=== PATIENT | female | born 1970 | race Caucasian/White ===

== ENCOUNTER → 2017-07-15 11:58 | Outpatient (CLI) | payer OTHER, SELFPAY ==
[2017-07-20 12:11] LABS: HPV Reflexed? NOT INDICATED
== END ==
PROVIDERS: Family Provider Family Medicine; PCP Family Medicine; Visit Provider Nurse Practitioner Adult Health
DX: Z01.419 Encounter for gynecological examination (general) (routine) without abnormal findings (principal)
CPT/HCPCS: 88175; G0145

== ENCOUNTER 2017-07-21 15:30 | Outpatient (RCR) | payer OTHER, SELFPAY ==
--- NOTE | 2017-07-15 11:54 | HP.PTEVAL ---
Patient's Visit Information JOE PITTMAN is a 47 year old F referred to Physical Therapy by Jose De Jesus Rosenbaum MD with a diagnosis of Hamstring Strain. Date of Evaluation: 07/15/17 Physical Therapist: Nerissa Lockhart - Visit Plan Frequency: 2x /Week Duration: 4 Weeks Plan: Core s/s - Subjective Subjective: Last wed she was at the [facility]- has been increasing weights- she increased weights on the leg press- she felt okay then 2 days later she was running and felt a pop and then she was done. Went to see MD- partial hamstring tear by Dr. Rosas- then went to [facility] and did the elliptical and acr marine mammal trainer for 20 each with no pain. Wednesday walked 3.71 miles and it hurt. Yesterday she ran 5 miles yesterday and didn't hurt to bad. This morning she ran 5 miles in an hour which is slow for her. She has also lifted this week. Worst: 02/28 Agg: movement Today: 4/10 Eases: resting. Had steroid injection in her buttocks when she saw . No x-rays or MRI. 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 PMHx: shingles Meds: prozac - Objective Posture: good throughout. Gait: no deviation. Observation: increased bruising on the posterior knee crease. ROM: WNL in all planes. Strength: Ankle: 5/5, Knee: 4/5, Hip: 4-/5 throughout. Flex: HS: moderate, Gastroc: mod - Goals Goal 1:: Patient will be I with HEP and progression Goal Time Frame: 4-6 Weeks Goal 2:: Patient will run 5 miles with 0/10 pain Goal Time Frame: 4-6 Weeks Goal 3:: Patient will demo 5/5 hip strength Goal Time Frame: 4-6 Weeks - Rehabilitation Potential Physical Therapy Diagnosis: Patient presents with hypomobility s/p hamstring strain she has decreased strength, flex and muscular endurance leading to increased pain Rehabilitation Potential: Good - Anticipated Interventions Therapeutic Exercise to Include: Strength training, Endurance training, Balance training, Coordination, Agility training, Body mechanics, Postural training, Flexibilty training, Gait and locomotor training, Dynamic Lumbar Stabilization For the Purpose of:: To improve muscle performance and motor function Manual Therapy Techniques to Include: Functional dry needling For the Purpose of:: To improve nutrient delivery to tissue, To increase oxygenation perfusion Thank you for the opportunity to evaluate your patient. For Medicare and Medicare HMO plans, please review the plan of care and approve it. It will need to be FAXED BACK to us at [phone] for Medicare purposes. Please let me know if there are questions or concerns regarding this plan of care. Physician Signature: Date:
--- NOTE | 2017-09-08 08:36 | HP.PT.NRP ---
HP - Discharge Summary (1) - Patient Information JOE PITTMAN was seen in my office for initial evaluation on 07/15/17. The following Plan of Care was established for this patient: Initial Frequency: 2x /Week Initial Duration: 4 Weeks - Anticipated Interventions Therapeutic Exercise to Include: Strength training, Endurance training, Balance training, Coordination, Agility training, Body mechanics, Postural training, Flexibilty training, Gait and locomotor training, Dynamic Lumbar Stabilization For the Purpose of:: To improve muscle performance and motor function Manual Therapy Techniques to Include: Functional dry needling For the Purpose of:: To improve nutrient delivery to tissue, To increase oxygenation perfusion This patient was last seen in our office . Pertinent comments regarding their Physical therapy will appear below: Patient is back to running and does not require physical therapy at this time. Appropriate for d.c. At this point I will be discontinuing this patient from physical therapy. I would be happy to see this patient again in the future if found appropriate by the physician. Thank you! Nerissa Lockhart
== END 2017-08-09 19:00 | disposition home or self-care (01) ==
LOC: PT 15:30
PROVIDERS: Family Provider Family Medicine; PCP Family Medicine; Visit Provider Family Medicine
DX: S76.309D Unspecified injury of muscle, fascia and tendon of the posterior muscle group at thigh level, unspecified thigh, subsequent encounter (principal)
CPT/HCPCS: 97110; 97161

== ENCOUNTER → 2018-01-13 08:01 | Outpatient (CLI) | payer OTHER, SELFPAY ==
--- NOTE | 2018-01-13 08:03 | BI_ITS ---
MAMMOGRAPHY - BILATERAL SCREENING REASON FOR EXAM: Female, 47 years old. Routine annual screening examination. PERTINENT HISTORY: Non-contributory. TECHNIQUE: Digital bilateral breast melita (3D mammographic acquisition) in the CC and MLO projections. 2-D mediolateral oblique (MLO) and craniocaudad (CC) views of both breasts were obtained. CAD: Full Field Digital Mammography with Computer Added Detection was performed. COMPARISON: Comparison is made with prior study via January 12, 2017 and June 25, 2015. FINDINGS: Breast Composition: The breasts are extremely dense, which lowers the sensitivity of mammography. There are no dominant masses or suspicious calcifications. No other significant abnormalities are identified. There has been no significant change since the prior study. BI/SCREENING MAMM (CAD), BILAT IMPRESSION: Stable bilateral screening mammogram. Yearly follow-up mammogram recommended. (A) ASSESSMENT CATEGORY: BIRADS Category 1: Negative. A letter regarding these results will be sent to the patient by the facility within 30 days. Approximately 10% of breast cancers are not detected by mammography. A normal mammogram should not delay biopsy of a clinically suspicious abnormality. [id number] Electronically Signed: Vickey Akins MD at 8:35 EDT Tel [phone], Service support ,
== END ==
PROVIDERS: Family Provider Family Medicine; PCP Family Medicine; Referring Provider Nurse Practitioner Adult Health; Visit Provider Nurse Practitioner Adult Health
DX: Z12.31 Encounter for screening mammogram for malignant neoplasm of breast (principal)
CPT/HCPCS: 77063; 77067

== ENCOUNTER → 2018-04-19 10:21 | Outpatient (CLI) | payer OTHER, SELFPAY ==
--- NOTE | 2018-04-19 10:30 | RAD_ITS ---
STUDY: X-RAY - RIGHT HAND REASON FOR EXAM: Female, 47 years old. Pain following a recent fall. TECHNIQUE: 3 view(s) of the hand. COMPARISON: None. FINDINGS: Normal radiocarpal articulation. Normal distal radioulnar joint. Normal visualized carpal bones. Normal carpal articulations Normal carpometacarpal articulation of the thumb. Normal second through fifth carpometacarpal joints. Normal metacarpi. Normal metacarpophalangeal joint of the thumb. Normal interphalangeal joint of the thumb. Normal proximal and distal phalanges of the thumb. Normal metacarpophalangeal joints of the second through fifth fingers. Normal proximal and distal interphalangeal joints of the second through fifth fingers. Normal phalanges of the second through fifth fingers. The soft tissue structures are unremarkable. RAD/Hand Min 3 Views IMPRESSION: Normal x-ray examination of the hand. Electronically Signed: Vickey Akins MD at 15:02 EST , Service support ,
--- NOTE | 2018-04-19 10:31 | RAD_ITS ---
STUDY: X-RAY - RIGHT WRIST REASON FOR EXAM: Female, 47 years old. Pain following a recent fall. TECHNIQUE: 3 view(s) of the wrist were obtained. COMPARISON: None. FINDINGS: Normal visualized distal radius and ulna. Normal radiocarpal articulation. Normal distal radioulnar articulation. Normal carpal bones. Normal carpal articulations. Normal carpometacarpal articulation of the thumb. Normal second through fifth carpometacarpal articulations. Normal visualized metacarpal bones. Soft tissue swelling. RAD/Wrist min 3 Views IMPRESSION: Soft tissue swelling. Electronically Signed: Vickey Akins MD at 15:02 EST , Service support ,
== END ==
PROVIDERS: Family Provider Family Medicine; PCP Family Medicine; Referring Provider Family Medicine; Visit Provider Family Medicine
DX: S60.221A Contusion of right hand, initial encounter (principal)
CPT/HCPCS: 73110; 73130

== ENCOUNTER → 2018-07-19 13:34 | Outpatient (CLI) | payer OTHER, SELFPAY ==
[2018-07-22 13:09] LABS: HPV Reflexed? NOT INDICATED
== END ==
PROVIDERS: PCP Family Medicine; Visit Provider Nurse Practitioner Adult Health
DX: Z01.419 Encounter for gynecological examination (general) (routine) without abnormal findings (principal)
CPT/HCPCS: 88175; G0145

== ENCOUNTER → 2019-01-17 10:35 | Outpatient (CLI) | payer OTHER, SELFPAY ==
--- NOTE | 2019-01-17 10:38 | BI_ITS ---
MAMMOGRAPHY - BILATERAL SCREENING REASON FOR EXAM: Female, 48 years old. Routine annual screening examination. PERTINENT HISTORY: Non-contributory. TECHNIQUE: Digital bilateral breast niall (3D mammographic acquisition) in the CC and MLO projections. 2-D mediolateral oblique (MLO) and craniocaudad (CC) views of both breasts were obtained. CAD: Full Field Digital Mammography with Computer Added Detection was performed. COMPARISON: Comparison is made with prior study January 13, 2018 and January 12, 2017. FINDINGS: Breast Composition: The breasts are extremely dense, which lowers the sensitivity of mammography. There are no dominant masses or suspicious calcifications. No other significant abnormalities are identified. There has been no significant change since the prior study. BI/SCREEN MAMM (CAD) W/NIALL BILAT IMPRESSION: Stable bilateral screening mammogram. Yearly follow-up mammogram recommended. (A) ASSESSMENT CATEGORY: BIRADS Category 1: Negative. A letter regarding these results will be sent to the patient by the facility within 30 days. Approximately 10% of breast cancers are not detected by mammography. A normal mammogram should not delay biopsy of a clinically suspicious abnormality. [id number] Electronically Signed: Vickey Akins, at 14:10 EDT , Service support ,
--- NOTE | 2019-01-17 10:41 | BD_ITS ---
STUDY: DUAL ENERGY X-RAY ABSORPTIOMETRY / DXA REASON FOR EXAM: Female, 48 years old. The patient is postmenopausal. Loss of height. TECHNIQUE: Bone Mineral Density (BMD) measurements of lumbar spine and bilateral hips were obtained. COMPARISON: Comparison is made with prior examination dated December 31, 2010. FINDINGS: Lumbar Spine (L1-L4): g/cm2 (0.935) / T-score (-2.0) / Z-score (-1.7) Findings are suggestive of osteopenia with a moderate fracture risk. Left Femur Total: g/cm2 (0.763) / T-score (-1.9) / Z-score (-1.5) Left Femoral Neck: g/cm2 (0.759) / T-score (-2.0) / Z-score (-1.2) Right Femur Total: g/cm2 (0.768) / T-score (-1.9) / Z-score (-1.5) Right Femoral Neck: g/cm2 (0.768) / T-score (-1.9) / Z-score (-1.2) The T-Scores on the most recent prior examination were: Lumbar Spine (L1-L4): There has been worsening of bone density since the previous examination. Left Femur Total: which represents a worsening of 1.8%. Right Femur Total: which represents an improvement of 0.1%. BD/Dexa Bone Density Study IMPRESSION: The patient is considered osteopenic as outlined below according to World [place] Organization (WHO) criteria with a moderate fracture risk. There has been worsening of bone density since the previous examination. Reference Information: The T-score is the number of standard deviations above or below the standard which is normal for young adults at their peak bone mineral density. The World Health Organization (WHO) interprets the T-scores as follows: Above -1 Normal bone density Between -1 and -2.5 Osteopenia Equal to / or below -2.5 Osteoporosis As a practical clinical guideline, osteopenia may be graded as follows: Mild -1 through -1.5 Moderate -1.6 through -2.0 Severe -2.1 through -2.4 The Z-score is the number of standard deviations above or below age-matched controls. A Z-score of less than -1.5 would be considered abnormal. References: 1. NIH Osteoporosis and Related Bone Diseases http://www.osteo.org 2. International Society for Clinical Densitometry http://www.iscd.org 3. National Osteoporosis Foundation http://www.nof.org Electronically Signed: Vickey Akins, at 11:10 EDT , Service support ,
== END ==
PROVIDERS: Family Provider Family Medicine; PCP Family Medicine; Referring Provider Family Medicine; Visit Provider Family Medicine
DX: Z12.31 Encounter for screening mammogram for malignant neoplasm of breast (principal); M85.80 Other specified disorders of bone density and structure, unspecified site
CPT/HCPCS: 77063; 77067; 77080

== ENCOUNTER → 2019-03-16 16:33 | Outpatient (CLI) | payer OTHER, SELFPAY ==
[2019-03-16 17:28] LABS: Absolute Lymphocyte Count 2.06 X10^3/uL (0.83-4.51); Absolute Neutrophil Count 2.9 X10^3/uL (2.0-7.7); Basophil# 0.05 X10^3/uL; Basophil% 0.9 % (0-1); Eosinophil# 0.15 X10^3/uL; Eosinophils% 2.6 % (0-5); Hematocrit 37.7 % (37-47); Hemoglobin 12.1 g/dL (12.0-15.0); Lymphocyte # 2.06 X10^3/ul (4.0); Lymphocyte % 36.3 % (19-41); Mean Corp Hgb Conc 32.1 g/dL (32-36); Mean Corpuscular Hgb 31.6 pg (27.0-32.0); Mean Corpuscular Volume 98.4 fL (81-99); Mean Platelet Vol. 11.4 fl (6.2-12.0); Monocyte# 0.53 X10^3/uL; Monocyte% 9.3 % (0-10); NRBC Flagged by Analyzer 0 % (0-5); Neutrophil # 2.86 X10^3/uL (2.7-7.7); Neutrophil % 50.5 % (47-70); Platelet Count 261 K/mm3 (150-450); RBC Distribution Width CV 12.6 % (11.6-14.6); RBC Distribution Width SD 45.2 fl (35.1-43.9); Red Blood Count 3.83 M/mm3 (4.2-5.4); White Blood Count 5.7 K/mm3 (4.4-11.0)
[2019-03-16 17:55] LABS: Vitamin B12 602 pg/mL (211-911); Vitamin D,25 Hydroxy 52.3 ng/mL (29.95-100.01)
[2019-03-16 17:59] LABS: AST(SGOT) 24 U/L (15-37); Alanine Aminotransfer ALT/SGPT 24 U/L (13-56); Albumin, Serum 3.5 g/dL (3.2-5.0); Alkaline Phosphatase 53 U/L (45-117); Anion Gap 4 (5-15); BUN 18 mg/dL (7-18); BUN/Creat Ratio 25.6 RATIO (10-20); Calcium,Total 8.8 mg/dL (8.5-10.1); Chloride 104 mmol/L (98-107); EST Glomerular Filtration Rate 94 mL/min (>60); Est Glom Filt Rate - Afr Amer 113 mL/min (>60); Ferritin 21 ng/mL (8-252); Free T3 2.3 pg/mL (2.18-3.98); Globulin 3.5 g/dL (2.2-4.2); Glucose 75 mg/dL (74-106); Iron 105 ug/dL (50-170); Potassium 3.9 mmol/L (3.5-5.1); Sodium Level 138 mmol/L (136-145); T4 Free Direct 0.78 ng/dL (0.76-1.46); Thyroid Stim Hormone (TSH) 5.56 uIU/mL (0.358-3.74)
[2019-03-16 18:27] LABS: Erythrocyte Sedimentation Rate 4 mm/hr (0-20)
== END ==
PROVIDERS: Family Provider Family Medicine; PCP Family Medicine; Visit Provider Family Medicine
DX: M85.80 Other specified disorders of bone density and structure, unspecified site (principal); R53.83 Other fatigue
CPT/HCPCS: 80053; 82306; 82533; 82607; 82728; 83540; 84439; 84443; 84481; 85025; 85652

== ENCOUNTER → 2019-04-05 13:57 | Outpatient (CLI) | payer OTHER, SELFPAY ==
--- NOTE | 2019-04-05 14:06 | CT_ITS ---
STUDY: CT BRAIN WITH AND WITHOUT CONTRAST REASON FOR EXAM: Female, 48 years old. FREQUENT HEADACHE RADIATION DOSAGE (If Supplied By Facility): CTDIvol = ( 44.99 ) mGy, DLP = ( 1547.23 ) mGycm TECHNIQUE: Transaxial CT imaging of the brain was performed pre and post contrast administration. The examination was performed with intravenous administration of . Individualized dose optimization techniques were used for this CT. COMPARISON: February 20, 2011 CT brain FINDINGS: Normal soft tissue structures. Normal calvarium. Normal size ventricles and extra-axial spaces for the patient''s age. Normal white matter tracts of the cerebral hemispheres. Normal basal ganglia and thalami. Normal brainstem. Normal cerebellum. There is no intracranial hemorrhage. There are no findings of an acute ischemic infarction. Normal visualized paranasal sinuses. CT/Brain/Head W/WO Contrast IMPRESSION: Normal unenhanced and enhanced CT scan of the brain. Electronically Signed: Han Mendoza MD at 18:54 EST , Service support ,
== END ==
PROVIDERS: Family Provider Family Medicine; PCP Family Medicine; Referring Provider Family Medicine; Visit Provider Family Medicine
DX: R51 Headache (principal)
CPT/HCPCS: 70470; Q9967

== ENCOUNTER → 2019-04-10 06:32 | Outpatient (CLI) | payer OTHER, SELFPAY ==
[2019-04-10 09:37] LABS: T4 Free Direct 0.99 ng/dL (0.76-1.46); Thyroid Stim Hormone (TSH) 1.76 uIU/mL (0.358-3.74)
== END ==
PROVIDERS: PCP Family Medicine; Referring Provider Family Medicine; Visit Provider Family Medicine
DX: E03.9 Hypothyroidism, unspecified (principal)
CPT/HCPCS: 36415; 84439; 84443

== ENCOUNTER → 2019-08-21 16:10 | Outpatient (CLI) | payer OTHER, SELFPAY ==
[2019-08-21 18:07] LABS: Thyroid Stim Hormone (TSH) 1.61 uIU/mL (0.358-3.74)
[2019-08-23 17:47] LABS: HPV Reflexed? NOT INDICATED
== END ==
PROVIDERS: PCP Family Medicine; Referring Provider Family Medicine; Visit Provider Family Medicine
DX: Z01.419 Encounter for gynecological examination (general) (routine) without abnormal findings (principal); E03.9 Hypothyroidism, unspecified
CPT/HCPCS: 36415; 84439; 84443; 88175; G0145

== ENCOUNTER 2019-12-06 09:35 | Outpatient (RCR) | payer OTHER, SELFPAY | END 2019-12-20 23:59 | LOC: EMPH 09:35 | PROVIDERS: PCP Family Medicine; Referring Provider Family Medicine Geriatric Medicine; Visit Provider Family Medicine Geriatric Medicine | DX: Z11.59 Encounter for screening for other viral diseases (principal) | CPT/HCPCS: 87635; U0003 ==

== ENCOUNTER → 2020-01-08 11:56 | Outpatient (CLI) | payer OTHER, SELFPAY ==
[2020-01-08 13:37] LABS: Thyroid Stim Hormone (TSH) 1.08 uIU/mL (0.358-3.74)
== END ==
PROVIDERS: PCP Family Medicine; Visit Provider Family Medicine
DX: E03.9 Hypothyroidism, unspecified (principal)
CPT/HCPCS: 36415; 84439; 84443

== ENCOUNTER 2020-01-18 13:03 | Outpatient (RCR) | payer OTHER, SELFPAY | END 2020-01-20 23:59 | LOC: EMPH 13:03 | PROVIDERS: PCP Family Medicine; Referring Provider Family Medicine Geriatric Medicine; Visit Provider Family Medicine Geriatric Medicine | DX: Z03.818 Encounter for observation for suspected exposure to other biological agents ruled out (principal) | CPT/HCPCS: 87426 ==

== ENCOUNTER → 2020-01-23 10:17 | Outpatient (CLI) | payer OTHER, SELFPAY ==
--- NOTE | 2020-01-23 10:19 | BI_ITS ---
MAMMOGRAPHY - BILATERAL SCREENING REASON FOR EXAM: Female, 49 years old. Routine annual screening examination. PERTINENT HISTORY: Non-contributory. TECHNIQUE: Digital bilateral breast niall (3D mammographic acquisition) in the CC and MLO projections. 2-D mediolateral oblique (MLO) and craniocaudad (CC) views of both breasts were obtained. CAD: Full Field Digital Mammography with Computer Added Detection was performed. COMPARISON: Comparison is made with prior examination dated 01/17/2019 and 01/13/2018. FINDINGS: Breast Composition: The breasts are extremely dense, which lowers the sensitivity of mammography. There are no dominant masses or suspicious calcifications. No other significant abnormalities are identified. There has been no significant change since the prior study. BI/SCREEN MAMM (CAD) W/NIALL BILAT IMPRESSION: Stable bilateral screening mammogram. Yearly follow-up mammogram recommended. (A) ASSESSMENT CATEGORY: BIRADS Category 1: Negative. A letter regarding these results will be sent to the patient by the facility within 30 days. Approximately 10% of breast cancers are not detected by mammography. A normal mammogram should not delay biopsy of a clinically suspicious abnormality. [id number] Electronically Signed: Vickey Akins, at 11:19 EST , Service support ,
== END ==
PROVIDERS: PCP Family Medicine; Referring Provider Nurse Practitioner Adult Health; Visit Provider Nurse Practitioner Adult Health
DX: Z12.31 Encounter for screening mammogram for malignant neoplasm of breast (principal)
CPT/HCPCS: 77063; 77067

== ENCOUNTER 2020-02-14 08:12 | Outpatient (RCR) | payer OTHER, SELFPAY ==
[2020-02-01 10:26] LABS: Probe Check PASS; Specimen Processing Control PASS
== END 2020-02-19 23:59 ==
LOC: EMPH 08:12
PROVIDERS: PCP Family Medicine; Referring Provider Family Medicine Geriatric Medicine; Visit Provider Family Medicine Geriatric Medicine
DX: Z03.818 Encounter for observation for suspected exposure to other biological agents ruled out (principal)
CPT/HCPCS: 87426; 87635; U0002

== ENCOUNTER 2020-03-20 14:14 | Outpatient (RCR) | payer OTHER, SELFPAY | END 2020-03-21 23:59 | LOC: EMPH 14:14 | PROVIDERS: PCP Family Medicine; Referring Provider Family Medicine Geriatric Medicine; Visit Provider Family Medicine Geriatric Medicine | DX: Z03.818 Encounter for observation for suspected exposure to other biological agents ruled out (principal) | CPT/HCPCS: 87426 ==

== ENCOUNTER 2020-04-19 08:17 | Outpatient (RCR) | payer OTHER, SELFPAY | END 2020-04-21 23:59 | LOC: EMPH 08:17 | PROVIDERS: PCP Family Medicine; Referring Provider Family Medicine Geriatric Medicine; Visit Provider Family Medicine Geriatric Medicine | DX: Z03.818 Encounter for observation for suspected exposure to other biological agents ruled out (principal) | CPT/HCPCS: 87426 ==

== ENCOUNTER 2020-05-14 12:40 | Outpatient (RCR) | payer OTHER, SELFPAY | END 2020-05-19 23:59 | LOC: EMPH 12:40 | PROVIDERS: PCP Family Medicine; Referring Provider Family Medicine Geriatric Medicine; Visit Provider Family Medicine Geriatric Medicine | DX: Z03.818 Encounter for observation for suspected exposure to other biological agents ruled out (principal) | CPT/HCPCS: 87426 ==

== ENCOUNTER 2020-06-12 09:45 | Outpatient (RCR) | payer OTHER, SELFPAY | END 2020-06-19 23:59 | LOC: EMPH 09:45 | PROVIDERS: PCP Family Medicine; Referring Provider Family Medicine Geriatric Medicine; Visit Provider Family Medicine Geriatric Medicine | DX: Z03.818 Encounter for observation for suspected exposure to other biological agents ruled out (principal) | CPT/HCPCS: 87426 ==

== ENCOUNTER → 2020-06-13 11:12 | Outpatient (CLI) | payer OTHER, SELFPAY ==
[2020-06-13 13:30] LABS: T4 Free Direct 0.77 ng/dL (0.76-1.46); Thyroid Stim Hormone (TSH) 2.11 uIU/mL (0.358-3.74)
[2020-06-13 16:24] LABS: Vitamin D,25 Hydroxy 52.9 ng/mL
== END ==
PROVIDERS: PCP Family Medicine; Referring Provider Family Medicine; Visit Provider Family Medicine
DX: E03.9 Hypothyroidism, unspecified (principal); F32.9 Major depressive disorder, single episode, unspecified
CPT/HCPCS: 36415; 82306; 84439; 84443

== ENCOUNTER 2020-07-19 10:02 | Outpatient (RCR) | payer OTHER, SELFPAY | END 2020-07-19 23:59 | LOC: EMPH 10:02 | PROVIDERS: PCP Family Medicine; Referring Provider Family Medicine Geriatric Medicine; Visit Provider Family Medicine Geriatric Medicine | DX: Z03.818 Encounter for observation for suspected exposure to other biological agents ruled out (principal) | CPT/HCPCS: 87426 ==

== ENCOUNTER → 2020-07-23 07:57 | Outpatient (CLI) | payer OTHER, SELFPAY ==
[2020-07-23 10:53] LABS: T4 Free Direct 0.94 ng/dL (0.76-1.46); Thyroid Stim Hormone (TSH) 1.63 uIU/mL (0.358-3.74)
== END ==
PROVIDERS: PCP Family Medicine; Referring Provider Family Medicine; Visit Provider Family Medicine
DX: E03.9 Hypothyroidism, unspecified (principal)
CPT/HCPCS: 36415; 84439; 84443

== ENCOUNTER 2020-08-13 13:41 | Outpatient (RCR) | payer OTHER, SELFPAY | END 2020-08-19 23:59 | LOC: EMPH 13:41 | PROVIDERS: PCP Family Medicine; Referring Provider Family Medicine Geriatric Medicine; Visit Provider Family Medicine Geriatric Medicine | DX: Z03.818 Encounter for observation for suspected exposure to other biological agents ruled out (principal) | CPT/HCPCS: 87426 ==

== ENCOUNTER 2020-09-11 13:07 | Outpatient (RCR) | payer OTHER, SELFPAY | END 2020-09-18 23:59 | LOC: EMPH 13:07 | PROVIDERS: PCP Family Medicine; Referring Provider Family Medicine Geriatric Medicine; Visit Provider Family Medicine Geriatric Medicine | DX: Z03.818 Encounter for observation for suspected exposure to other biological agents ruled out (principal) | CPT/HCPCS: 87426 ==

== ENCOUNTER → 2020-09-17 10:20 | Outpatient (CLI) | payer OTHER, SELFPAY ==
[2020-09-21 07:37] LABS: HPV Reflexed? NOT INDICATED
== END ==
PROVIDERS: PCP Family Medicine; Visit Provider Registered Nurse
DX: Z01.419 Encounter for gynecological examination (general) (routine) without abnormal findings (principal)
CPT/HCPCS: 88175; G0145

== ENCOUNTER 2020-09-25 13:27 | Outpatient (RCR) | payer OTHER, SELFPAY | END 2020-10-19 23:59 | LOC: EMPH 13:27 | PROVIDERS: PCP Family Medicine; Referring Provider Family Medicine Geriatric Medicine; Visit Provider Family Medicine Geriatric Medicine | DX: Z03.818 Encounter for observation for suspected exposure to other biological agents ruled out (principal) | CPT/HCPCS: 87426 ==

== ENCOUNTER 2020-11-19 12:18 | Outpatient (RCR) | payer OTHER, SELFPAY | END 2020-11-19 23:59 | LOC: EMPH 12:18 | PROVIDERS: PCP Family Medicine; Referring Provider Family Medicine Geriatric Medicine; Visit Provider Family Medicine Geriatric Medicine | DX: Z03.818 Encounter for observation for suspected exposure to other biological agents ruled out (principal) | CPT/HCPCS: 87426 ==

== ENCOUNTER 2020-12-02 13:42 | Outpatient (RCR) | payer OTHER, SELFPAY | END 2020-12-19 23:59 | LOC: EMPH 13:42 | PROVIDERS: PCP Family Medicine; Referring Provider Family Medicine Geriatric Medicine; Visit Provider Family Medicine Geriatric Medicine | DX: Z03.818 Encounter for observation for suspected exposure to other biological agents ruled out (principal) | CPT/HCPCS: 87426 ==

== ENCOUNTER → 2021-01-23 10:48 | Outpatient (CLI) | payer OTHER, SELFPAY ==
--- NOTE | 2021-01-23 10:50 | BI_ITS ---
MAMMOGRAPHY - BILATERAL SCREENING REASON FOR EXAM: Female, 50 years old. Routine annual screening examination. PERTINENT HISTORY: Non-contributory. TECHNIQUE: Digital bilateral breast niall (3D mammographic acquisition) in the CC and MLO projections. 2-D mediolateral oblique (MLO) and craniocaudad (CC) views of both breasts were obtained. CAD: Full Field Digital Mammography with Computer Added Detection was performed. COMPARISON: Comparison is made with prior study dated 01/23/2020 and 01/17/2019. FINDINGS: Breast Composition: The breasts are extremely dense, which lowers the sensitivity of mammography. There are no dominant masses or suspicious calcifications. No other significant abnormalities are identified. There has been no significant change since the prior study. BI/SCRN MAMM (CAD)W/NIALL BILAT IMPRESSION: Stable bilateral screening mammogram. Yearly follow-up mammogram recommended. (A) ASSESSMENT CATEGORY: BIRADS Category 1: Negative. A letter regarding these results will be sent to the patient by the facility within 30 days. Approximately 10% of breast cancers are not detected by mammography. A normal mammogram should not delay biopsy of a clinically suspicious abnormality. [id number] Electronically Signed: Vickey Akins MD at 13:17 EDT , Service support ,
--- NOTE | 2021-01-23 11:07 | BD_ITS ---
STUDY: DUAL ENERGY X-RAY ABSORPTIOMETRY / DXA REASON FOR EXAM: Female, 50 years old. [id number]. The patient is postmenopausal. TECHNIQUE: Bone Mineral Density (BMD) measurements of lumbar spine and bilateral hips were obtained. COMPARISON: Comparison is made with prior study dated 01/17/2019. FINDINGS: Lumbar Spine (L1-L4): g/cm2 (0.830) / T-score (-2.0) / Z-score (-1.1) Findings are suggestive of osteopenia with a moderate fracture risk. Left Femur Total: g/cm2 (0.721) / T-score (-1.8) / Z-score (-1.3) Left Femoral Neck: g/cm2 (0.615) / T-score (-2.1) / Z-score (-1.3) Right Femur Total: g/cm2 (0.707) / T-score (-1.9) / Z-score (-1.4) Right Femoral Neck: g/cm2 (0.609) / T-score (-2.2) / Z-score (-1.3) The T-Scores on the most recent prior examination were: Lumbar Spine (L1-L4): There has been improvement of bone density since the previous examination. Left Femur Total: which represents an improvement of 2.5%. Right Femur Total: which represents a worsening of 0.2%. BD/Dexa Bone Density Study IMPRESSION: The patient is considered osteopenic as outlined below according to World [place] Organization (WHO) criteria with a high fracture risk. There has been improvement of bone density since the previous examination. Reference Information: The T-score is the number of standard deviations above or below the standard which is normal for young adults at their peak bone mineral density. The World Health Organization (WHO) interprets the T-scores as follows: Above -1 Normal bone density Between -1 and -2.5 Osteopenia Equal to / or below -2.5 Osteoporosis As a practical clinical guideline, osteopenia may be graded as follows: Mild -1 through -1.5 Moderate -1.6 through -2.0 Severe -2.1 through -2.4 The Z-score is the number of standard deviations above or below age-matched controls. A Z-score of less than -1.5 would be considered abnormal. References: 1. NIH Osteoporosis and Related Bone Diseases www osteo.org 2. International Society for Clinical Densitometry www iscd.org 3. National Osteoporosis Foundation www nof.org Electronically Signed: Vickey Akins MD at 12:50 EDT , Service support ,
== END ==
PROVIDERS: PCP Family Medicine; Referring Provider Family Medicine; Visit Provider Family Medicine
DX: Z12.31 Encounter for screening mammogram for malignant neoplasm of breast (principal); M85.80 Other specified disorders of bone density and structure, unspecified site
CPT/HCPCS: 77063; 77067; 77080

== ENCOUNTER 2021-01-27 10:20 | Outpatient (RCR) | payer OTHER, SELFPAY | END 2021-02-18 23:59 | LOC: EMPH 10:20 | PROVIDERS: PCP Family Medicine; Referring Provider Family Medicine Geriatric Medicine; Visit Provider Family Medicine Geriatric Medicine | DX: Z03.818 Encounter for observation for suspected exposure to other biological agents ruled out (principal) | CPT/HCPCS: 87426 ==

== ENCOUNTER 2021-03-20 10:06 | Outpatient (RCR) | payer OTHER, SELFPAY | END 2021-03-21 23:59 | LOC: EMPH 10:06 | PROVIDERS: PCP Family Medicine; Referring Provider Family Medicine Geriatric Medicine; Visit Provider Family Medicine Geriatric Medicine | DX: Z03.818 Encounter for observation for suspected exposure to other biological agents ruled out (principal) | CPT/HCPCS: 87426; 87635; U0003; U0005 ==

== ENCOUNTER 2021-04-21 10:39 | Outpatient (RCR) | payer OTHER, SELFPAY | END 2021-04-21 23:59 | LOC: EMPH 10:39 | PROVIDERS: PCP Family Medicine; Referring Provider Family Medicine Geriatric Medicine; Visit Provider Family Medicine Geriatric Medicine | DX: Z03.818 Encounter for observation for suspected exposure to other biological agents ruled out (principal) | CPT/HCPCS: 87426 ==

== ENCOUNTER 2021-05-19 12:30 | Outpatient (RCR) | payer OTHER, SELFPAY | END 2021-05-19 23:59 | disposition home or self-care (01) | LOC: EMPH 12:30 | PROVIDERS: PCP Family Medicine; Referring Provider Family Medicine Geriatric Medicine; Visit Provider Family Medicine Geriatric Medicine | DX: Z03.818 Encounter for observation for suspected exposure to other biological agents ruled out (principal) | CPT/HCPCS: 87426 ==

== ENCOUNTER 2021-08-28 10:41 | Outpatient (CLI) | payer OTHER, SELFPAY ==
[2021-08-28 13:06] LABS: T4 Free Direct 0.84 ng/dL (0.76-1.46); Thyroid Stim Hormone (TSH) 0.74 uIU/mL (0.358-3.74)
== END 2021-08-28 23:59 | disposition home or self-care (01) ==
LOC: MFPLAB 10:43
PROVIDERS: PCP Family Medicine; Referring Provider Family Medicine; Visit Provider Family Medicine
DX: E03.9 Hypothyroidism, unspecified (principal)
CPT/HCPCS: 36415; 84439; 84443

== ENCOUNTER → 2021-12-05 | Outpatient (CLI) | payer OTHER, SELFPAY ==
--- NOTE | 2021-12-05 12:35 | RAD_ITS ---
STUDY: X-RAY - LEFT WRIST REASON FOR EXAM: Female, 51 years old. Left wrist pain TECHNIQUE: 3 view(s) of the wrist were obtained. COMPARISON: None. FINDINGS: Nondisplaced comminuted fracture of the distal radial metaphysis. Mild degree of dorsal facing. Avulsion fracture of the ulnar styloid. Normal radiocarpal articulation. Normal distal radioulnar articulation. Normal carpal bones. Normal carpal articulations. Normal carpometacarpal articulation of the thumb. Normal second through fifth carpometacarpal articulations. Normal visualized metacarpal bones. Soft tissue swelling. RAD/Wrist min 3 Views IMPRESSION: Nondisplaced comminuted fracture of the distal radial metaphysis. Avulsion fracture of the ulnar styloid. Soft tissue swelling. Electronically Signed: Vickey Akins MD at 12:50 EDT ,
== END | disposition home or self-care (01) ==
LOC: MTRAD 12:35
PROVIDERS: PCP Family Medicine; Referring Provider Physician Assistant Surgical; Visit Provider Physician Assistant Surgical
DX: S63.502A Unspecified sprain of left wrist, initial encounter (principal)
CPT/HCPCS: 73110

== ENCOUNTER 2021-12-09 08:14 | Day surgery (SDC) | payer OTHER, SELFPAY ==
[2021-12-09] MEDS: Lactated Ringers 1,000 ML 15 ML IV (08:20)
[2021-12-09 08:44] VITALS: BP 120/86; PULSE 66; RESP 18; TEMP 37.7; O2SAT 98; BMI 19.0
--- NOTE | 2021-12-09 09:45 | PCM.HP.BLA ---
History and Physical Date of Admission: 12/09/21 [facility] [address] [place] [address] OFFICE VISIT Date of Service:? 12/08/21 MR#: [id number] Acct: [id number] Name:JOE NAQVI Rep #: [id number] : 1970 ? ? Provider: Dr. Jacob Patel, DO Age/Sex:? 51/F ? ? Location[place] [facility] [place] Status: Signed Intake Vital Signs ? 01/23/2111:10 12/09/2207:28 Height 5 ft 4.5 in 5 ft 4 in Weight: ? 115 lb BMI ? 19.7 Intake Visit Reasons:?LEFT ARM Accompanied by: Is patient in pain?: Yes Pain scale (1-10): 2 Allergies No Known Allergies Allergy (Unverified 12/05/21 12:26) Medications fluoxetine 10 mg capsule (Prozac) 10 mg PO DAILY 12/05/21 [History Confirmed 12/08/21] amitriptyline 25 mg tablet 25 mg PO 12/08/21 [History Confirmed 12/08/21] levothyroxine 50 mcg tablet tablet PO 12/08/21 [History Confirmed 12/08/21] PFSH Medical History?(Updated 12/08/21 @ 08:30 by Gosia Escamilla) Radius fracture Surgical History?(Updated 12/08/21 @ 08:30 by Gosia Escamilla) Hx of dilation and curettage Social History?(Updated 12/08/21 @ 08:30 by Gosia Escamilla) Smoking Status:? Never smoker alcohol intake:? never HPI LEFT ARM Details: Parts of this documentation were recorded by a scribe, this documentation accurately reflects the service provided and the decisions made by me, Dr. Jacob Patel, DO 12/08/21 0817. JOE PITTMAN is a 51 year old F NEW patient here today for left wrist fx. She was seen at Urgent care 12/05/21. She had xrays and then was placed into a splint. DOI: 12/05/21 She states that she was in an exercise class and she fell backward and maybe caught herself with the left wrist behind her. he has been taking Ibuprofen for the pain. Her pain is 2/10. Denies any past fx to this wrist. Her ring was not taken off at the [facility] and she hasnt been able to get her ring off. Her wedding ring was removed today with soap and water in the office. Ortho Exam General General: Yes no acute distress Neurologic: Yes alert and Yes oriented x3 Psychologic: Yes reasonable and appropriate Right Wrist/Hand Skin/Wound: Yes Swelling and Yes Ecchymosis Left Wrist/Hand Date of injury: 12/05/21 Skin/Wound: Yes Swelling, Yes Ecchymosis, Yes capillary refill normal and No erythema Left Wrist: Yes TTP Fracture site; No ROM-Extension 0-60, No ROM-Flexion 0-80, No ROM-Pronation 0-80 and No ROM-Supination 0-90 Sensation: Radial: I, Ulnar: I and Median: I WRIST: mild ecchymosis positive wrinkle sign Supplemental Info 12/05/2021 x-ray left wrist: There is a distal radius intra-articular fracture with dorsal and ulnar comminution dorsal angulation 24 deg, there is an ulnar styloid fracture Coding Level of Care Code Off vis,new,level 3 Assessment and Plan Plan Details Additional Comments: Patient educated that she does have distal radius fx that is intra-articular and dorsally angulated and comminuted.? Avulsion fracture of the ulnar styloid. Educated that her fx site does extend into the joint which can cause increased arthritis.? Risk benefits and alternatives of surgical versus nonsurgical intervention reviewed recommended surgery which would be a distal radius ORIF.?Reviewed the pre-operative plans with the patient. Risks and benefits of the procedure were fully explained, including but not limited to infection, neurovascular injury, continued pain, arthritis, stiffness, need for further surgery, re-injury, DVT, PE, general risks of anesthesia, and loss of limb or life, postoperative restrictions and expected postoperative course may take up up to a year and a half of full recovery. The patient understands all the risks and does wish to proceed with written consent for left distal radius ORIF. If she does decline surgery there is the treatment coarse of immobilization but this is not the recommended treatment. She wishes to proceed with surgery. We will try to get her placed onto the surgery schedule tomorrow 12/09/21. She will have restrictions after surgery. Placed patient into the splint today. Encouraged to keep icing and elevating the wrist. Follow up 2 weeks post op or sooner if pain, swelling, numbness or associated symptoms, or concerns develop.? All questions answered. Patient in agreement of plan. 12/08/21 0945 <Electronically signed by Jacob Patel DO> Date Jacob Patel DO Cosigner Signature: Date (if applicable) ? CC: ? ~I have re-examined the patient. There are no clinical changes since date of exam
[2021-12-09] MEDS: Cefazolin 2 GM in 0.9% Normal Saline 100 ML IV (10:08)
--- NOTE | 2021-12-09 10:33 | RAD_ITS ---
INDICATION: ORIF, DISTAL RADIUS EXAMINATION/TECHNIQUE: X-RAY - XR Wrist 2 Views COMPARISON: 12/05/2021 FLUOROSCOPY DOSE: 0.83 mGy FLUOROSCOPY TIME: 49.7 seconds. FINDINGS: 3 spot fluoroscopic images were obtained intraoperatively. Images demonstrate plate and screws internally fixating the distal radius. Near anatomic bone alignment is seen. No radiologist was present for the procedure, please refer to operative report for details. RAD/Wrist 2 Views IMPRESSION: Please refer to operative report for details. Electronically Signed: Arie Wade MD at 14:17 EDT ,
--- NOTE | 2021-12-09 11:33 | PCM.OP.BLANK ---
Operative Report Date of Procedure: 12/09/21 Preoperative diagnosis: Displaced intra-articular distal radius fracture comminuted Postoperative diagnosis: Same Procedure: ORIF of the distal radius Implants: Synthes distal radius variable angle locking plate Complications: None Indication for procedure: 51-year-old female patient had a ground-level fall injuring left wrist x-rays were taken which demonstrated intra-articular dorsally angulated comminuted fracture we discussed risks benefits and alternatives of conservative versus surgical intervention. Including the risk of bleeding infection nerve artery tissue damage need for further surgery continued pain postoperative stiffness need for postoperative physical therapy and the expected postoperative course. Procedure: The patient was met in the preoperative holding area the operative extremity was identified by both patient and physician and marked. Patient was met by anesthesia she was brought back to the operating room on a wheeled cart and transferred to the operating table in the supine position anesthesia was started. A well-padded tourniquet was placed on the upper arm of the operative extremity. She was prepped and draped in the usual sterile fashion. A Time out was called to ensure the proper patient procedure and extremity were being contemplated. A 15 blade scalpel was used to make a linear incision over the FCR tendon this was carried down through the skin and subcutaneous tissue. Electrocautery was used to maintain hemostasis. Jose retractors were used. The FCR tendon sheath was incised and the FCR tendon was mobilized radially. A deep blade scalpel was used to perforate the fascia of the deep FCR tendon sheath and Littler scissors were used to dissect proximally and distally. Blunt dissection was performed a ki was placed on the radial and ulnar side of the radius. The pronator quadratus was partially torn from the injury and was released off the radial border of the radius with electrocautery and was elevated with a matute elevator. The Hohmann retractors were then placed deep to this muscle. The fracture site was visualized and was freed of hematoma and clot debris with the use of small rongeur and [place]. The fracture was then reduced with the use of a [place] and ulnar deviation and wrist flexion. This was checked under fluoroscopy to ensure that an adequate reduction could be performed. A plate was then positioned over the fracture site and temporarily fixed to the bone with K wires. A cortical screw was then placed in the shaft and sequential locking screws were placed distally this was checked on both AP and lateral projections to ensure screw placement was not penetrating the joint and was in the proper location. Bone drill sleeve was used for the radial styloid screw and a variable angle fashion. The remainder of the cortical screws were placed in the shaft. And the fracture and hardware were visualized in both AP and lateral projections in good alignment and fracture positioning. The wound was thoroughly irrigated. Pronator quadratus was not repairable. A subcutaneous stitch with 3-0 Vicryl was performed followed by 4-0 nylon vertical mattress stitches. Followed by Xeroform 4 x 4 ABD web roll stockinette more web roll and an Juwan wrap. The tourniquet was let down. There was no complications intraoperatively and the patient was brought back to the PACU in stable condition where she received an axillary block. All counts were correct.
--- NOTE | 2021-12-09 11:35 | DCINST_ITS ---
Discharge Instructions Dressing / Incision Call your doctor if you observe: Shortness of breath and Chest pain Additional Dressing/Incision Instructions:: Strict elevation of operative extremity above heart for next 7 days. no exercise until seen at follow up appointment with me 12/17/21. office should call you to schedule if you do not hear from them please call to arrange. Ice 15 minutes on 15 minutes off. Continue ice and elevation for 7 days postoperatively. Encourage full finger range of motion. Absolutely no lifting pushing or pulling more than a coffee cup with left hand/arm. Must keep splint on clean and dry. Do not take narcotic pain medication other than what was prescribed without discussing with physician. May supplement with OTC Tylenol 1000 mg every 6 hours, and ibuprofen 600 mg every 6 hours. Do not start ibuprofen until 24 hours postop. Call with any questions or concerns. If you decide to go to work the arm should be elevated above your heart particularly the hand and kept cool and iced. If you need any work notes please let our office know and we will provide. Follow Up Care Please Follow Up With: Jacob Patel DO When: 1 week Test Results: Test results from this visit will be discussed in further detail at your follow- up appointment, if applicable. Discharge Plan Admission Attending Provider: Jacob Patel Primary Care Provider: Rosendo Coleman Discharge Orders/Prescriptions Prescriptions: New oxycodone 5 mg tablet 5 mg PO Q4H PRN (Reason: pain) 5 Days Qty: 30 0RF No Action fluoxetine [Prozac] 10 mg capsule 10 mg PO DAILY levothyroxine 50 mcg tablet 50 mcg PO DAILY Label Comments: TAKE 1 TABLET BY MOUTHLONCE DAILY WITH 2 TABLETS ON WEDNESDAY AND WEDNESDAY amitriptyline 25 mg tablet 25 mg PO QHS Label Comments: TAKE 1 OR 2 BY MOUTH ATCBEDTIME calcium carbonate-vitamin D3 [Calcium + D] 600 mg-5 mcg (200 unit) Tablet 1 tab PO TID Referrals / Follow Up: Rosendo Coleman MD [Primary Care Provider] - Disposition Discharge Orders: Discharge Patient (Routine); Ordered 12/09/21 Ordered By: Dr. Jacob Patel
[2021-12-09 11:37] VITALS: BP 112/85; BP 120/86; PULSE 63; RESP 16; TEMP 36.9; O2SAT 100
[2021-12-09 11:45] VITALS: BP 107/75; BP 120/86; PULSE 64; RESP 16; O2SAT 100
[2021-12-09 12:00] VITALS: BP 110/83; BP 120/86; PULSE 60; RESP 16; O2SAT 94
[2021-12-09] MEDS: Cefazolin 1 GM/50 ML BAG IV (12:05)
[2021-12-09 12:21] VITALS: BP 107/78; BP 120/86; PULSE 65; RESP 16; TEMP 37; O2SAT 100
[2021-12-09 13:18] VITALS: BP 115/84; BP 120/86; PULSE 63; RESP 14; TEMP 36.9; O2SAT 100
== END 2021-12-09 13:22 | disposition home or self-care (01) ==
LOC: SDC 08:15 → AC 08:16
PROVIDERS: PCP Family Medicine; Referring Provider Orthopaedic Surgery; Visit Provider Orthopaedic Surgery
PROC: (CPT 25607; principal; 2021-12-09 09:15)
DX: S52.579A Other intraarticular fracture of lower end of unspecified radius, initial encounter for closed fracture (principal); E03.9 Hypothyroidism, unspecified; F41.9 Anxiety disorder, unspecified; F32.A Depression, unspecified
CPT/HCPCS: 25607; 01830; 64450; 73100; 76000; 93005; C1713; J7120

== ENCOUNTER → 2022-01-15 | Outpatient (CLI) | payer OTHER, SELFPAY ==
--- NOTE | 2022-01-15 16:06 | RAD_ITS ---
STUDY: X-RAY - LEFT WRIST REASON FOR EXAM: Female, 51 years old. pain TECHNIQUE: 3 view(s) of the wrist were obtained. COMPARISON: 12/05/2021 FINDINGS: Interval open reduction internal fixation of fracture of the distal radius with a volar plate and screws. Normal radiocarpal articulation. Normal distal radioulnar articulation. Normal carpal bones. Normal carpal articulations. Normal carpometacarpal articulation of the thumb. Normal second through fifth carpometacarpal articulations. Normal visualized metacarpal bones. The soft tissue structures are unremarkable. RAD/Wrist min 3 Views IMPRESSION: Interval open reduction internal fixation of fracture of the distal radius. Electronically Signed: Alexis Dubois MD at 16:38 EDT ,
== END | disposition home or self-care (01) ==
LOC: MTRAD 16:06
PROVIDERS: PCP Family Medicine; Referring Provider Orthopaedic Surgery; Visit Provider Orthopaedic Surgery
DX: S52.502A Unspecified fracture of the lower end of left radius, initial encounter for closed fracture (principal)
CPT/HCPCS: 73110

== ENCOUNTER → 2022-01-29 | Outpatient (CLI) | payer OTHER, SELFPAY ==
--- NOTE | 2022-01-29 14:48 | BI_ITS ---
MAMMOGRAPHY - BILATERAL SCREENING REASON FOR EXAM: Female, 51 years old. Routine annual screening examination. PERTINENT HISTORY: Non-contributory. TECHNIQUE: Digital bilateral breast melita (3D mammographic acquisition) in the CC and MLO projections. 2-D mediolateral oblique (MLO) and craniocaudad (CC) views of both breasts were obtained. CAD: Full Field Digital Mammography with Computer Added Detection was performed. COMPARISON: Comparison is made with prior examination 01/23/2021 and 01/23/2020. FINDINGS: Breast Composition: The breasts are extremely dense, which lowers the sensitivity of mammography. There are no dominant masses or suspicious calcifications. No other significant abnormalities are identified. There has been no significant change since the prior study. BI/SCREENING MAMM (CAD), BILAT IMPRESSION: Stable bilateral screening mammogram. Yearly follow-up mammogram recommended. (A) ASSESSMENT CATEGORY: BIRADS Category 1: Negative. A letter regarding these results will be sent to the patient by the facility within 30 days. Approximately 10% of breast cancers are not detected by mammography. A normal mammogram should not delay biopsy of a clinically suspicious abnormality. [id number] Electronically Signed: Vickey Akins MD at 15:34 EST ,
== END | disposition home or self-care (01) ==
LOC: OPBI 14:47
PROVIDERS: PCP Family Medicine; Visit Provider Family Medicine
DX: Z12.31 Encounter for screening mammogram for malignant neoplasm of breast (principal)
CPT/HCPCS: 77067

== ENCOUNTER 2022-02-05 15:30 | Outpatient (RCR) | payer OTHER, SELFPAY ==
--- NOTE | 2021-12-25 07:27 | HP.OTEVAL_ITS ---
Patient's Visit Information JOE PITTMAN is a 51 year old F, referred to Occupational Therapy by Dr. Jacob Patel DO, with a diagnosis of left distal radius fx.. Date of Evaluation: 12/24/21 Occupational Therapist: Jackelyn Hunt, LEROYR/Tom, CHT - Subjective This 51 year old female was seen for OT eval with dx of left distal radius fx - pt states she had fall on 12/05/21. sx on 12/09/21. 2weeks and on day s/p from ORIF of distal radius- pt presents today with soft wrist brace on stitches removed- pt reports she is limited with all ADLs and IADLs at this time. Her is helping with all tasks of cooking-cleaning and laundry at this time. pt would like to return to her PLOF. 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 all digit ROM is WNL - Strength Textiles And Clothing Teacher: right 55#3 left NT Lateral Pinch: right 6# left NT Tripod Pinch: right 12# left NT Strength Comments: will test left fine arts chair strength at later date - Sensation Sensation Comments: pt reports at times - Goals Goal:ROM equal to unaffected hand: Yes Goal:Textiles And Clothing Teacher/Pinch strength at least 75% of unaffected hand: Yes Goal:No pain with affected hand use: Yes Goal:Full use of affected hand in daily activities including: Yes - Rehabilitation General Assessment: pt arrives s/p 2 weeks and one day from ORIF of left distal radius. pt demo with limited ROM weakness and newly healing structures. pt currently limited with all ADLs and IADLS at this time and would benefit from skilled OT services 1-2 x week for next 6 weeks to return pts ROM and strength for pt to return to work and daily occupations at [employer] [employer] [employer]. Today therapist ed. pt on scar mtg, edema control PRN and wrist felx/ext AROM and forearm supination AROM ex. pt demo understanding and agree to POC. Rehabilitation Potential: Excellent - Anticipated Interventions A/AAROM/PROM, Strengthening, Scar Care, Triggerpoint Release, Modalities, Orthoses, Joint Protection/Energy Conservation, Ergonomic Education, Education re Diagnosis - Visit Plan Frequency: 1-2x /Week Duration: 6 Weeks TEXT: Thank you for the opportunity to evaluate your patient. For Medicare and Medicare HMO plans, please review the plan of care and approve it. It will need to be FAXED BACK to us at [phone] for Medicare purposes. Please let me know if there are questions or concerns regarding this plan of care. Physician Signature: Date:
--- NOTE | 2021-12-25 07:28 | HP.OTEVAL_ITS ---
Patient's Visit Information JOE PITTMAN is a 51 year old F, referred to Occupational Therapy by Dr. Jacob Patel DO, with a diagnosis of left distal radius fx.. Date of Evaluation: 12/24/21 Occupational Therapist: Jackelyn Hunt, PHILIPP/Tom, CHT - Subjective This 51 year old female was seen for OT eval with dx of left distal radius fx - pt states she had fall on 12/05/21. sx on 12/09/21. 2weeks and on day s/p from ORIF of distal radius- pt presents today with soft wrist brace on stitches removed- pt reports she is limited with all ADLs and IADLs at this time. Her is helping with all tasks of cooking-cleaning and laundry at this time. pt would like to return to her PLOF. 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 all digit ROM is WNL - Strength Distribution Center Assistant: right 55#3 left NT Lateral Pinch: right 6# left NT Tripod Pinch: right 12# left NT Strength Comments: will test left websphere architect strength at later date - Sensation Sensation Comments: pt reports at times - Quick DASH-Disab of Arm,Shoulder& Hand Quick DASH Score: 75.0000 - Goals Goal:ROM equal to unaffected hand: Yes Goal:Distribution Center Assistant/Pinch strength at least 75% of unaffected hand: Yes Goal:No pain with affected hand use: Yes Goal:Full use of affected hand in daily activities including: Yes - Rehabilitation General Assessment: pt arrives s/p 2 weeks and one day from ORIF of left distal radius. pt demo with limited ROM weakness and newly healing structures. pt currently limited with all ADLs and IADLS at this time and would benefit from skilled OT services 1-2 x week for next 6 weeks to return pts ROM and strength for pt to return to work and daily occupations at [employer]. Today therapist ed. pt on scar mtg, edema control PRN and wrist felx/ext AROM and forearm supination AROM ex. pt demo understanding and agree to POC. Rehabilitation Potential: Excellent - Anticipated Interventions A/AAROM/PROM, Strengthening, Scar Care, Triggerpoint Release, Modalities, Orthoses, Joint Protection/Energy Conservation, Ergonomic Education, Education re Diagnosis - Visit Plan Frequency: 1-2x /Week Duration: 6 Weeks TEXT: Thank you for the opportunity to evaluate your patient. For Medicare and Medicare HMO plans, please review the plan of care and approve it. It will need to be FAXED BACK to us at [phone] for Medicare purposes. Please let me know if there are questions or concerns regarding this plan of care. Physician Signature: Date:
--- NOTE | 2022-02-05 16:00 | HP.OTDCSUM ---
It has been my pleasure to treat JOE PITTMAN under orders from Dr. Jacob Patel DO, for the diagnosis of left distal radius fx. for a total of 13 visit(s). Please see the following information for a summary of their discharge status. % Improvement: 80 Objective/Function: left wrist ROM 65/60. left lateral pinch 6#. left tripod pinch 4#. left supervisor mold construction strength 30# Patient Goals: Regain Mobility, Use Hand/Wrist/Arm Normally Again Goal:ROM equal to unaffected hand: Yes Goal:Securities Lending Trader/Pinch strength at least 75% of unaffected hand: Yes Goal:No pain with affected hand use: Yes Goal:Full use of affected hand in daily activities including: Yes Plan: D/C from OT but pt will cont. with gym eq. at her local [facility]. pt can call or email with questions/concerns Discharge Comments: pt was seen 13 OT visits following left ORIF of distal radius- pt did great and has met OT gals- pt d/c with HEP and will continue exercising at her local [facility]. If there are questions or concerns regarding this patient's occupational therapy, please fell free to call me at [phone]. Thank you for the referral of this patient. Sincerely, Jackelyn Hunt, OTR/L, CHT
== END 2022-02-05 19:00 | disposition home or self-care (01) ==
LOC: OT 15:30
PROVIDERS: PCP Family Medicine; Referring Provider Orthopaedic Surgery; Visit Provider Orthopaedic Surgery
DX: S52.502A Unspecified fracture of the lower end of left radius, initial encounter for closed fracture (principal)
CPT/HCPCS: 97110; 97140; 97166; 97168

== ENCOUNTER → 2022-04-27 | Outpatient (CLI) | payer OTHER, SELFPAY ==
--- NOTE | 2022-04-27 11:08 | RAD_ITS ---
STUDY: X-RAY - LEFT HAND REASON FOR EXAM: Female, 51 years old. pain TECHNIQUE: 3 view(s) of the hand. COMPARISON: None. FINDINGS: Postsurgical changes status post open reduction internal fixation of distal radial fracture with indwelling orthopedic hardware. 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 Normal distal radioulnar joint. Normal visualized carpal bones. Normal carpal articulations Normal carpometacarpal articulation of the thumb. Normal second through fifth carpometacarpal joints. Normal metacarpi. Normal metacarpophalangeal joint of the thumb. Normal interphalangeal joint of the thumb. Normal proximal and distal phalanges of the thumb. Normal metacarpophalangeal joints of the second through fifth fingers. Normal proximal and distal interphalangeal joints of the second through fifth fingers. Normal phalanges of the second through fifth fingers. The soft tissue structures are unremarkable. RAD/Hand Min 3 Views IMPRESSION: Postsurgical changes of the distal radius. 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 Coexisting infection not entirely excluded. Clinical correlation recommended Electronically Signed: Nash Llamas MD at 17:04 EST Reading Location ID and State: [facility] / [place] , Service support ,
--- NOTE | 2022-04-27 11:31 | RAD_ITS ---
STUDY: X-RAY - LEFT WRIST REASON FOR EXAM: Female, 51 years old. Pain. TECHNIQUE: 3 view(s) of the wrist were obtained. COMPARISON: January 15, 2022. FINDINGS: Volar plate and screw fixation of the distal radius with anatomic alignment at the distal radius. Stable minimally displaced avulsion fracture of the ulnar styloid. Stable mild arthrosis. Chondrocalcinosis unchanged. RAD/Wrist min 3 Views IMPRESSION: Stable ORIF of distal radius with ulnar styloid fracture. Mild arthrosis with chondrocalcinosis. No complicating features. Electronically Signed: Sung Benjamin, at 12:43 EST ,
--- NOTE | 2022-04-27 17:48 | RAD_ITS ---
INDICATION: 1 view PA wrist elbow+shouler@90degrees abduction -- 1 view PA wrist elbow+shoulder@90degrees abduction EXAMINATION/TECHNIQUE: X-RAY - LEFT XR Wrist 2 Views 2 VIEWS COMPARISON: April 27, 2022 hand radiograph.. December 05, 2021 and January 15 2022 wrist radiograph FINDINGS: SOFT TISSUES: No soft tissue swelling or gas. No radiopaque foreign body. BONES/JOINTS: Distal radial metaphysis internal fixation placement complex without evidence of residual fracture lucency.. Ulnar styloid fragment noted from prior avulsion. Normal alignment. Mild chronic radiocarpal joint space narrowing and osteophyte formation... No erosive changes or aggressive osseous lesion. RAD/Wrist 2 Views IMPRESSION: Distal radial internal fixation without evidence of hardware failure. No residual fracture lucency Electronically Signed: Kenneth Ribeiro MD at 2:09 EST ,
== END | disposition home or self-care (01) ==
PROVIDERS: PCP Family Medicine; Visit Provider Orthopaedic Surgery
DX: G89.18 Other acute postprocedural pain (principal); M79.643 Pain in unspecified hand
CPT/HCPCS: 73100; 73110; 73130

== ENCOUNTER → 2022-06-30 | Outpatient (CLI) | payer OTHER, SELFPAY ==
[2022-06-30 15:36] LABS: Bacteria 0 SEEN /hpf (None Seen); Mucous, Urine 0 SEEN /hpf (<or=2+); Squamous Epithelial Cells - UA 0 SEEN /hpf (5-10)
[2022-06-30 18:40] LABS: Color, Urine Yellow (Yellow); Glucose, Dipstick Normal (Normal); Ketone-Dipstick Negative (Negative); Leukocyte Esterase-Dipstick 100 /ul (Negative); Nitrite-Dipstick Negative (Negative); Occult Blood-Urine 150 /ul (Negative); Protein-Dipstick Negative (Negative); Specific Gravity, Urine 1.015 (1.002-1.030); Urine Bilirubin Dipstick Negative (Negative); Urine Clarity Clear (Clear); Urine Urobilinogen Normal (Normal)
[2022-06-30 19:06] LABS: Anion Gap 3 (5-15); BUN 25 mg/dL (7-18); BUN/Creat Ratio 36.8 RATIO (10-20); Calcium,Total 9.2 mg/dL (8.5-10.1); Chloride 104 mmol/L (98-107); Creatinine, Serum 0.68 mg/dL (0.55-1.02); EST Glomerular Filtration Rate 96 mL/min (>60); Est Glom Filt Rate - Afr Amer 117 mL/min (>60); Glucose 81 mg/dL (74-106); Magnesium 2.1 mg/dL (1.6-2.6); Potassium 3.9 mmol/L (3.5-5.1); Sodium Level 135 mmol/L (136-145); Thyroid Stim Hormone (TSH) 1.83 uIU/mL (0.358-3.74)
[2022-06-30 19:10] LABS: Red Blood Cells-Urine 0-5 SEEN /hpf (0-5); White Blood Cells 0-5 SEEN /hpf (0-5)
[2022-07-01 09:54] LABS: PTHIN 58.1 pg/mL (18.4-80.1)
== END | disposition home or self-care (01) ==
LOC: MFPLAB 15:33
PROVIDERS: PCP Family Medicine; Referring Provider Family Medicine; Visit Provider Family Medicine
DX: R31.9 Hematuria, unspecified (principal); M81.0 Age-related osteoporosis without current pathological fracture; E03.9 Hypothyroidism, unspecified
CPT/HCPCS: 36415; 80048; 81001; 82306; 82330; 83735; 83970; 84443; 87077; 87086; 87088; 87186

== ENCOUNTER → 2023-02-04 | Outpatient (CLI) | payer OTHER, SELFPAY ==
--- NOTE | 2023-02-04 15:43 | BI_ITS ---
MAMMOGRAPHY - BILATERAL SCREENING REASON FOR EXAM: Female, 52 years old. Routine annual screening examination. PERTINENT HISTORY: Non-contributory. TECHNIQUE: Digital bilateral breast niall (3D mammographic acquisition) in the CC and MLO projections. 2-D mediolateral oblique (MLO) and craniocaudad (CC) views of both breasts were obtained. CAD: Full Field Digital Mammography with Computer Added Detection was performed. COMPARISON: Comparison is made with prior study January 29, 2022 and January 23, 2021. FINDINGS: Breast Composition: The breasts are extremely dense, which lowers the sensitivity of mammography. There are no dominant masses or suspicious calcifications. No other significant abnormalities are identified. There has been no significant change since the prior study. BI/SCRN MAMM (CAD)W/NIALL BILAT IMPRESSION: Stable bilateral screening mammogram. Yearly follow-up mammogram recommended. (A) ASSESSMENT CATEGORY: BIRADS Category 1: Negative. A letter regarding these results will be sent to the patient by the facility within 30 days. Approximately 10% of breast cancers are not detected by mammography. A normal mammogram should not delay biopsy of a clinically suspicious abnormality. [id number] Electronically Signed: Vickey Akins MD at 8:36 EST ,
== END | disposition home or self-care (01) ==
LOC: OPBI 15:42
PROVIDERS: PCP Family Medicine; Referring Provider Family Medicine; Visit Provider Family Medicine
DX: Z12.31 Encounter for screening mammogram for malignant neoplasm of breast (principal)
CPT/HCPCS: 77063; 77067

== ENCOUNTER → 2023-05-04 | Outpatient (CLI) | payer OTHER, SELFPAY ==
--- NOTE | 2023-05-04 15:46 | MRI_ITS ---
INDICATION: New onset headache after age 49, wakes her from sleep EXAMINATION: MRI - MR Brain WO/W Contrast TECHNIQUE: MRI examination of brain obtained with standard protocol including multiplanar multiecho imaging. Pre and Postcontrast imaging obtained. IV Contrast Dosage and Agent: 19 mL Clariscan COMPARISON: CT examination of 04/05/2019 FINDINGS: HEMISPHERES, CEREBELLUM AND BRAINSTEM: 1. The cerebral parenchyma, ventricular system, subarachnoid spaces have normal configuration and density. There is a normal gyral pattern. There is normal [place]/white differentiation. No midline shift.. 2. The hemispheric white matter has normal appearance. 3. No intraparenchymal mass, hemorrhage, or acute territorial infarct. 4. The cerebellum, brainstem, basilar and suprasellar cisterns have normal appearance. No Chiari malformation. 5. No areas of abnormal intraparenchymal or extra-axial contrast enhancement. PITUITARY: Infundibulum and pituitary have normal configuration. Midline structures appear normal. CSF SPACES: Appropriate for age. No hydrocephalus. Basal cisterns are patent. VESSELS: 1. There are normal flow voids noted in the great vessels at the skull base ORBITS AND PARANASAL SINUSES: 1. Both globes, extraocular muscles, optic nerves and retrobulbar fat appear unremarkable. 2. Paranasal sinuses are clear. BONY ELEMENTS: Bony elements of the cranial vault, facial skeleton and skull base have normal appearance. SCALP AND SOFT TISSUES: Normal appearance of the soft tissues of the scalp and the visualized face OTHER: None MRI/Brain W/WO Contrast IMPRESSION: 1. Normal MRI examination of the brain. 2. No intracranial mass, hemorrhage, or acute territorial infarct. 3. No areas of abnormal intraparenchymal or extra-axial contrast enhancement. 4. No radiographically significant sinus disease. Electronically Signed: Alexis Almeida MD at 20:08 EST ,
== END | disposition home or self-care (01) ==
LOC: MRI 15:43
PROVIDERS: PCP Family Medicine; Visit Provider Family Medicine
DX: R51.9 Headache, unspecified (principal)
CPT/HCPCS: 70553; A9575

== ENCOUNTER 2023-05-25 10:00 | Outpatient (RCR) | payer OTHER, SELFPAY ==
--- NOTE | 2023-05-14 08:45 | HP.PTEVAL ---
Patient's Visit Information Visit Information Visit Information: JOE PITTMAN is a 52 year old F referred to Physical Therapy by Dr. Zion Ybarra MD with a diagnosis of Osteoporosis/poor balance. Date of Evaluation: 05/14/23 Physical Therapist: MAI Casarez Visit Plan Frequency: 1x/Week Duration: 4 Weeks Plan: 1X/ week for 4 weeks for testing on Biodex and treatment/strategies for imbalance based upon results of testing with HEP Subjective Subjective: Pt fell and broke her wrist last year and had surgery on it. She wanted an order for balance and said yes. She feels that she is a clutz and feels that her balance can be better. She feels that she is not coordinated. She is less confident she she broke her wrist. She has a history of Osteopenia. She is young and wants to be proactive. 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 She runs also (50 miles a week). She gets some OSCAR for the last few months. She had an MRI a few weeks ago. She is now on Topomax to prevent OSCAR and one of the side effects is dizziness at night. She reports that her dizziness is lightheadedness and kind of floaty. She holds onto a railing with stairs. 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 Objective Objective: Gait: walks with good stride length with occ scissor/veering Stairs up and down recip with 1 hand rail for balance/safety LE MMT: R hip flex 14.7 and L hip flex 15.5 R knee ext 24.2 and L 25.1 R knee flex 18.7 and L 15.3 FGA: 27 CATSIB 120/120 Balance/Special Test Scores Functional Gait Assessment Score: 27 % Disability: 10.0000 CATSIB Score (Max score 120 seconds): 120 Lower Extremity Functional Score: 80 Goals Goal 1:: I HEP for balance and balance strategies Goal Time Frame: 2-4 Weeks Goal 2:: Test on Biodex Goal Time Frame: 2-4 Weeks Rehabilitation Potential Rehabilitation Potential: Good Anticipated Interventions Patient/Client Instruction: Educate patient on: Condition and Plan of Care For the Purpose of:: To improve gait and locomotor functions, To improve balance and To improve safety with gait Therapeutic Exercise to Include: Strength training, Balance training, Postural training and Gait and locomotor training For the Purpose of:: To improve balance and To improve safety with gait Functional Training to Include: Gait training For the Purpose of:: To improve gait and locomotor functions Text: Thank you for the opportunity to evaluate your patient. For Medicare and Medicare HMO plans, please review the plan of care and approve it. It will need to be FAXED BACK to us at [phone] for Medicare purposes. For Medicare only, by signing this I certify the plan of care. Please let me know if there are questions or concerns regarding this plan of care. Physician Signature: Date:
--- NOTE | 2023-05-25 13:52 | HP.PTDCSUM ---
Discharge Summary D/C summary: It has been my pleasure to treat JOE PITTMAN referred by Dr. Zion Ybarra MD, with the diagnosis of Osteoporosis/poor balance for a total of 2 visit(s). Discharge Date: 05/25/23 Please see the following information for a summary of their discharge status. 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 IF this did not occur she would have scored normally in my clinical jusdgement) Goals Goal 1:: I HEP for balance and balance strategies Goal Progress: Goal Met Goal 2:: Test on Biodex Goal Progress: Goal Met Plan Plan: 1X/ week for 4 weeks for testing on Biodex and treatment/strategies for imbalance based upon results of testing with HEP D/C Information Discharge Comments: DC PT d/c sentence: If there are questions or concerns regarding this patient's physical therapy, please feel free to call me at [phone]. Thank you for the referral of this patient. Sincerely, Cielo Sanders, MPT Balance/Gait/Functional tests Balance/Special Test Scores Functional Gait Assessment Score: 27 % Disability: 10.0000 CATSIB Score (Max score 120 seconds): 120 Lower Extremity Functional Score: 80 Improvement % Improvement: 75
== END 2023-05-25 19:00 | disposition home or self-care (01) ==
LOC: PT 10:00
PROVIDERS: PCP Family Medicine; Referring Provider Internal Medicine Endocrinology, Diabetes & Metabolism; Visit Provider Internal Medicine Endocrinology, Diabetes & Metabolism
DX: R26.89 Other abnormalities of gait and mobility (principal); M81.0 Age-related osteoporosis without current pathological fracture
CPT/HCPCS: 97161; 97750

== ENCOUNTER → 2023-05-28 | Outpatient (CLI) | payer OTHER, SELFPAY ==
[2023-05-28 10:25] LABS: Vitamin D,25 Hydroxy 75.7 ng/mL
[2023-05-28 10:31] LABS: PTHIN 43.8 pg/mL (18.4-80.1)
[2023-05-28 10:32] LABS: Anion Gap 5 (5-15); BUN 27 mg/dL (7-18); BUN/Creat Ratio 34.5 RATIO (10-20); Chloride 109 mmol/L (98-107); Creatinine, Serum 0.78 mg/dL (0.55-1.02); EST Glomerular Filtration Rate 81 mL/min (>60); Est Glom Filt Rate - Afr Amer 99 mL/min (>60); Glucose 87 mg/dL (74-106); Potassium 3.8 mmol/L (3.5-5.1); Sodium Level 142 mmol/L (136-145); Thyroid Stim Hormone (TSH) 2.47 uIU/mL (0.358-3.74)
== END | disposition home or self-care (01) ==
LOC: MTLAB 07:57
PROVIDERS: PCP Family Medicine; Referring Provider Family Medicine; Visit Provider Family Medicine
DX: M81.0 Age-related osteoporosis without current pathological fracture (principal); E03.9 Hypothyroidism, unspecified
CPT/HCPCS: 36415; 80048; 82306; 83970; 84439; 84443

== ENCOUNTER → 2023-08-27 | Outpatient (CLI) | payer OTHER, SELFPAY | END | disposition home or self-care (01) | LOC: EMPH 12:30 | PROVIDERS: PCP Family Medicine; Visit Provider Family Medicine Geriatric Medicine | DX: Z03.818 Encounter for observation for suspected exposure to other biological agents ruled out (principal) | CPT/HCPCS: 87811 ==

== ENCOUNTER → 2023-09-01 | Outpatient (CLI) | payer OTHER, SELFPAY | END | disposition home or self-care (01) | LOC: EMPH 14:49 | PROVIDERS: PCP Family Medicine; Visit Provider Family Medicine Geriatric Medicine | DX: Z03.818 Encounter for observation for suspected exposure to other biological agents ruled out (principal) | CPT/HCPCS: 87811 ==

== ENCOUNTER → 2024-02-08 | Outpatient (CLI) | payer OTHER, SELFPAY ==
--- NOTE | 2024-02-08 12:31 | BI_ITS ---
MAMMOGRAPHY - BILATERAL SCREENING REASON FOR EXAM: Female, 53 years old. Routine annual screening examination. PERTINENT HISTORY: Non-contributory. TECHNIQUE: Digital bilateral breast niall (3D mammographic acquisition) in the CC and MLO projections. 2-D mediolateral oblique (MLO) and craniocaudad (CC) views of both breasts were obtained. CAD: Full Field Digital Mammography with Computer Added Detection was performed. COMPARISON: Comparison is made with prior study dated February 04, 2023 and January 29, 2022. FINDINGS: Breast Composition: The breasts are extremely dense, which lowers the sensitivity of mammography. There are no dominant masses or suspicious calcifications. No other significant abnormalities are identified. There has been no significant change since the prior study. BI/SCRN MAMM (CAD)W/NIALL BILAT IMPRESSION: Stable bilateral screening mammogram. Yearly follow-up mammogram recommended. (A) ASSESSMENT CATEGORY: BIRADS Category 1: Negative. A letter regarding these results will be sent to the patient by the facility within 30 days. Approximately 10% of breast cancers are not detected by mammography. A normal mammogram should not delay biopsy of a clinically suspicious abnormality. [id number] Electronically Signed: Vickey Akins MD at 13:28 EST ,
--- NOTE | 2024-02-08 12:35 | BD_ITS ---
STUDY: DUAL ENERGY X-RAY ABSORPTIOMETRY / DXA REASON FOR EXAM: Female, 53 years old. M810 TECHNIQUE: Bone Mineral Density (BMD) measurements of lumbar spine and bilateral hips were obtained. COMPARISON: Comparison is made with prior study dated January 23, 2021. FINDINGS: Lumbar Spine (L1-L4): g/cm2 (0.752) / T-score (-2.7) / Z-score (-1.6) Findings are suggestive of osteoporosis with a high fracture risk. Left Femur Total: g/cm2 (0.698) / T-score (-2.0) / Z-score (-1.3) Left Femoral Neck: g/cm2 (0.580) / T-score (-2.4) / Z-score (-1.4) Right Femur Total: g/cm2 (0.693) / T-score (-2.0) / Z-score (-1.4) Right Femoral Neck: g/cm2 (0.627) / T-score (-2.0) / Z-score (-1.0) The T-Scores on the most recent prior examination were: Lumbar Spine (L1-L4): There has been worsening of bone density since the previous examination. Left Femur Total: which represents a worsening of 3.2%. Right Femur Total: which represents a worsening of 1.9%. BD/Dexa Bone Density Study IMPRESSION: The patient is considered osteoporotic as outlined below according to World [place] Organization (WHO) criteria with a high fracture risk. There has been worsening of bone density since the previous examination. Reference Information: The T-score is the number of standard deviations above or below the standard which is normal for young adults at their peak bone mineral density. The World Health Organization (WHO) interprets the T-scores as follows: Above -1 Normal bone density Between -1 and -2.5 Osteopenia Equal to / or below -2.5 Osteoporosis As a practical clinical guideline, osteopenia may be graded as follows: Mild -1 through -1.5 Moderate -1.6 through -2.0 Severe -2.1 through -2.4 The Z-score is the number of standard deviations above or below age-matched controls. A Z-score of less than -1.5 would be considered abnormal. References: 1. NIH Osteoporosis and Related Bone Diseases www osteo.org 2. International Society for Clinical Densitometry www iscd.org 3. National Osteoporosis Foundation www nof.org Electronically Signed: Vickey Akins MD at 14:01 EST ,
== END | disposition home or self-care (01) ==
LOC: OPBD 12:29
PROVIDERS: PCP Family Medicine; Referring Provider Family Medicine; Visit Provider Family Medicine
DX: Z12.31 Encounter for screening mammogram for malignant neoplasm of breast (principal); M81.0 Age-related osteoporosis without current pathological fracture
CPT/HCPCS: 77063; 77067; 77080

== ENCOUNTER → 2024-03-03 | Outpatient (CLI) | payer OTHER, SELFPAY ==
--- NOTE | 2024-03-03 08:49 | RAD_ITS ---
EXAM: XR LEFT HAND COMPLETE, 3 OR MORE VIEWS CLINICAL INDICATION: Pain TECHNIQUE: Frontal, lateral and oblique views of the left hand. COMPARISON: 04/27/2022. FINDINGS: BONES/JOINTS: Metallic plate with transfixing locking screws in the distal radius. No acute fracture. No subluxation. Normal alignment. Preservation of the joint space. No sclerotic or destructive changes observed. SOFT TISSUES: Unremarkable. No soft tissue swelling or gas. No radiopaque foreign body. RAD/Hand Min 3 Views IMPRESSION: 1. No acute findings in the left hand. 2. No significant interval change. Electronically Signed: Darin Henderson MD at 16:04 EST ,
== END | disposition home or self-care (01) ==
LOC: MTRAD 08:40
PROVIDERS: PCP Family Medicine; Referring Provider Orthopaedic Surgery; Visit Provider Orthopaedic Surgery
DX: M79.642 Pain in left hand (principal)
CPT/HCPCS: 73130

== ENCOUNTER → 2024-07-13 | Outpatient (CLI) | payer OTHER, SELFPAY ==
[2024-07-13 12:25] LABS: Ionized Calcium Order ORDER TUBE
[2024-07-13 17:19] LABS: PTHIN 31 pg/mL (11-61)
== END | disposition home or self-care (01) ==
LOC: MFPLAB 11:22
PROVIDERS: PCP Family Medicine; Referring Provider Family Medicine; Visit Provider Family Medicine
DX: M81.0 Age-related osteoporosis without current pathological fracture (principal); E03.9 Hypothyroidism, unspecified
CPT/HCPCS: 36415; 82306; 83970; 84439; 84443

== ENCOUNTER → 2025-02-13 | Outpatient (CLI) | payer OTHER, SELFPAY ==
--- NOTE | 2025-02-13 14:46 | BI_ITS ---
EXAM: SCRN MAMM (CAD)W/NIALL BILAT DATE: 02/13/2025 CLINICAL HISTORY: F, Age 54 y/o , SCREENING MAMM TECHNIQUE: Procedure Code: [id number] Modality: MG Procedure: SCRN MAMM (CAD)W/NIALL BILAT COMPARISON: Prior exam(s) dated mammogram dated 02/08/2024, 02/04/2023, and 01/29/2022. FINDINGS: TISSUE DENSITY: The breasts are extremely dense, which lowers the sensitivity of mammography. Bilateral Breast Mammographic Findings: No significant masses, calcifications or other abnormalities are identified. Benign round microcalcifications are seen in the left breast. BI/SCRN MAMM (CAD)W/NIALL BILAT IMPRESSION: Benign screening mammogram OVERALL FINAL ASSESSMENT BI-RADS 2: BENIGN RECOMMENDATION: Routine annual follow-up in 1 Year Additional Recommendation none A letter with findings and recommendations will be mailed to the patient. Reading Location: [id number]
== END | disposition home or self-care (01) ==
LOC: OPBI 14:46
PROVIDERS: PCP Family Medicine; Referring Provider Family Medicine; Visit Provider Family Medicine
DX: Z12.31 Encounter for screening mammogram for malignant neoplasm of breast (principal)
CPT/HCPCS: 77063; 77067